=== PATIENT | male | born 1970 | race Caucasian/White ===

== ENCOUNTER 2016-10-04 13:04 | Inpatient (IN) | payer OTHER ==
[~2016-10-04] VITALS: Ht 180.3 cm; Wt 147.9 kg
[2016-10-04 15:11] LABS: BASOPHIL % 0.3 % (0-2); PLATELET COUNT 221 x10^3mcL (130-400); RED CELL DISTRIBUTION WIDTH 12.2 % (11.5-14.5)
[2016-10-04 15:18] LABS: CALCIUM 7.9 mg/dL (8.5-10.1); CARBON DIOXIDE 29.9 mmol/L (21-32); CHLORIDE SERUM 99 mmol/L (98-107); GFR1 > 60 mL/min; GLUCOSE SERUM 336 mg/dL (74-106); POTASSIUM SERUM 3.3 mmol/L (3.5-5.1); SODIUM SERUM 134 mmol/L (136-145)
[2016-10-04 15:22] LABS: ALKALINE PHOSPHATASE 141 U/L (46-116); ALT/SGPT 182 U/L (16-63); AST/SGOT 61 U/L (15-37); CHOLESTEROL 174 mg/dL (<200); PHOSPHOROUS 2.9 mg/dL (2.5-4.9); TOTAL PROTEIN, SERUM 6.6 g/dL (6.4-8.2); URIC ACID 2.1 mg/dL (3.5-7.2)
[2016-10-04 15:26] LABS: HDL CHOLESTEROL 23 mg/dL (40-60)
[2016-10-04 15:35] LABS: microscopic required? NO
[2016-10-04 16:24] LABS: UA SPECIFIC GRAVITY 1.015 (1.005-1.035); urine erythrocyte NEGATIVE (NEGATIVE)
[2016-10-04 16:57] VITALS: BP 162/104
[2016-10-04 17:03] LABS: CHOLESTEROL/HDL RATIO 7.7
[2016-10-04 17:06] LABS: T3 TOTAL 0.94 ng/mL
[2016-10-04 17:13] VITALS: BP 162/104
[2016-10-04 17:17] VITALS: Ht 180.3 cm; Wt 147.9 kg
[2016-10-04 17:29] LABS: FREE T4 1.33 ng/dL (0.76-1.46); FREE THYROXINE INDEX 3.1 ug/dL (1.4-4.5); T4(THYROXINE) 9.8 ug/dL (4.7-13.3)
[2016-10-04 17:43] LABS: AMPHETAMINE QUAL UR NONE DETECTED (NEG <=1000)
[2016-10-04 18:16] VITALS: BP 149/80
[2016-10-04 20:04] VITALS: BP 137/85
[2016-10-04 21:50] VITALS: BP 139/80
[2016-10-05 05:14] LABS: BASOPHIL % 0.4 % (0-2); PLATELET COUNT 232 x10^3mcL (130-400); RED CELL DISTRIBUTION WIDTH 12.1 % (11.5-14.5)
[2016-10-05 05:31] LABS: CALCIUM 7.7 mg/dL (8.5-10.1); CARBON DIOXIDE 27.3 mmol/L (21-32); CHLORIDE SERUM 105 mmol/L (98-107); CREATININE SERUM 0.9 mg/dL (0.7-1.3); GFR1 > 60 mL/min; GLUCOSE SERUM 272 mg/dL (74-106); MAGNESIUM 1.7 mg/dL (1.8-2.4); PHOSPHOROUS 2.9 mg/dL (2.5-4.9); POTASSIUM SERUM 3.3 mmol/L (3.5-5.1); SODIUM SERUM 140 mmol/L (136-145)
[2016-10-05 06:41] VITALS: BP 131/78
[2016-10-05 09:30] VITALS: BP 129/74
[2016-10-05 15:00] VITALS: BP 134/79
[2016-10-05 17:23] VITALS: BP 148/88
[2016-10-05 21:32] VITALS: BP 139/82
[2016-10-06 06:04] VITALS: BP 126/74
[2016-10-06 06:50] LABS: BASOPHIL % 0.3 % (0-2); PLATELET COUNT 265 x10^3mcL (130-400); RED CELL DISTRIBUTION WIDTH 12.5 % (11.5-14.5)
[2016-10-06 07:27] LABS: CALCIUM 8.2 mg/dL (8.5-10.1); CARBON DIOXIDE 24.8 mmol/L (21-32); CHLORIDE SERUM 103 mmol/L (98-107); CREATININE SERUM 0.9 mg/dL (0.7-1.3); GFR1 > 60 mL/min; GLUCOSE SERUM 207 mg/dL (74-106); MAGNESIUM 1.9 mg/dL (1.8-2.4); PHOSPHOROUS 3.5 mg/dL (2.5-4.9); POTASSIUM SERUM 3.7 mmol/L (3.5-5.1); SODIUM SERUM 138 mmol/L (136-145)
[2016-10-06] MEDS ORDERED: ZES10 PO (09:11)
[2016-10-06] MEDS ORDERED: LEVAQUIN750 MG PO (09:12)
[2016-10-06] MEDS ORDERED: GLU5 PO (09:12)
[2016-10-06] MEDS ORDERED: METFORMIN HCL1000 MG PO (09:12)
[2016-10-06] MEDS ORDERED: LAC PO (09:13)
[2016-10-06 09:28] VITALS: BP 126/74
== END 2016-10-06 10:03 | disposition home or self-care (01) | DRG 251 ==
LOC: ED 13:04 → DU 16:13 → MU 10-05 18:58
PROVIDERS: Emergency Medicine; ADMIT Family Medicine
DX: R10.9 Unspecified abdominal pain (principal); R65.10 Systemic inflammatory response syndrome (SIRS) of non-infectious origin without acute organ dysfunction; D68.69 Other thrombophilia; E44.0 Moderate protein-calorie malnutrition; K76.0 Fatty (change of) liver, not elsewhere classified; E87.1 Hypo-osmolality and hyponatremia; E11.65 Type 2 diabetes mellitus with hyperglycemia; F12.10 Cannabis abuse, uncomplicated; Z68.42 Body mass index [BMI] 45.0-49.9, adult; E87.6 Hypokalemia; E66.01 Morbid (severe) obesity due to excess calories; E78.5 Hyperlipidemia, unspecified; I10 Essential (primary) hypertension; Z53.29 Procedure and treatment not carried out because of patient's decision for other reasons; Z88.5 Allergy status to narcotic agent
CPT/HCPCS: 80307; 83880; 84439; 87046; 87046-59; 87804; G0480; J1956; J7030; Q0092

== ENCOUNTER 2017-02-17 11:01 | Inpatient (IN) | payer OTHER ==
[~2017-02-17] VITALS: Ht 180.3 cm; Wt 138.9 kg
[~2017-02-17 11:01] MED LIST: GLU5 PO; LAC PO; LEVAQUIN750 MG PO; METFORMIN HCL1000 MG PO; ZES10 PO
[2017-02-17 11:29] LABS: BASOPHIL % 0.4 % (0-2); PLATELET COUNT 235 x10^3mcL (130-400); RED CELL DISTRIBUTION WIDTH 12.5 % (11.5-14.5)
[2017-02-17 11:46] LABS: CALCIUM 8.8 mg/dL (8.5-10.1); CARBON DIOXIDE 25.3 mmol/L (21-32); CHLORIDE SERUM 103 mmol/L (98-107); CREATININE SERUM 1.1 mg/dL (0.7-1.3); GFR1 > 60 mL/min; GLUCOSE SERUM 302 mg/dL (74-106); POTASSIUM SERUM 3.9 mmol/L (3.5-5.1); SODIUM SERUM 137 mmol/L (136-145)
[2017-02-17 11:52] LABS: ALBUMIN 3.4 g/dL (3.4-5.0); ALKALINE PHOSPHATASE 73 U/L (46-116); ALT/SGPT 41 U/L (16-63); AST/SGOT 15 U/L (15-37); BILIRUBIN TOTAL 0.76 mg/dL (0.20-1.00); LIPASE 129 IU/L (73-393); TOTAL PROTEIN, SERUM 7.2 g/dL (6.4-8.2)
[2017-02-17 13:14] VITALS: BP 141/95
[2017-02-17 13:21] VITALS: Ht 180.3 cm; Wt 138.9 kg
[2017-02-17 13:38] LABS: MAGNESIUM 1.9 mg/dL (1.8-2.4); PHOSPHOROUS 3.7 mg/dL (2.5-4.9)
[2017-02-17 13:43] LABS: CHOLESTEROL/HDL RATIO 4.2
[2017-02-17 13:46] LABS: T3 TOTAL 0.85 ng/mL
[2017-02-17 13:51] LABS: FREE T4 1.06 ng/dL (0.76-1.46); FREE THYROXINE INDEX 2.8 ug/dL (1.4-4.5); T4(THYROXINE) 7.5 ug/dL (4.7-13.3)
[2017-02-17 15:35] VITALS: BP 136/86
[2017-02-17 18:44] VITALS: BP 135/81
[2017-02-17 21:24] LABS: microscopic required? NO
[2017-02-17 21:37] LABS: UA SPECIFIC GRAVITY 1.025 (1.005-1.035); urine erythrocyte NEGATIVE (NEGATIVE)
[2017-02-17 21:44] VITALS: BP 123/79
[2017-02-17 21:44] LABS: AMPHETAMINE QUAL UR NONE DETECTED (NEG <=1000)
[2017-02-18 05:41] VITALS: BP 127/81
[2017-02-18 06:36] LABS: BASOPHIL % 0.5 % (0-2); PLATELET COUNT 193 x10^3mcL (130-400); RED CELL DISTRIBUTION WIDTH 12.5 % (11.5-14.5)
[2017-02-18 07:07] LABS: CALCIUM 8.3 mg/dL (8.5-10.1); CARBON DIOXIDE 29.3 mmol/L (21-32); CHLORIDE SERUM 104 mmol/L (98-107); GFR1 > 60 mL/min; GLUCOSE SERUM 198 mg/dL (74-106); MAGNESIUM 1.9 mg/dL (1.8-2.4); PHOSPHOROUS 4.5 mg/dL (2.5-4.9); POTASSIUM SERUM 3.9 mmol/L (3.5-5.1); SODIUM SERUM 140 mmol/L (136-145)
== END 2017-02-18 08:40 | disposition left against medical advice (07) | DRG 243 ==
LOC: ED 11:01 → DU 12:11
PROVIDERS: Emergency Medicine; ADMIT Family Medicine
DX: K21.9 Gastro-esophageal reflux disease without esophagitis (principal); E11.65 Type 2 diabetes mellitus with hyperglycemia; I10 Essential (primary) hypertension; M94.0 Chondrocostal junction syndrome [Tietze]; E78.5 Hyperlipidemia, unspecified; Z88.6 Allergy status to analgesic agent; E66.01 Morbid (severe) obesity due to excess calories; Z68.41 Body mass index [BMI] 40.0-44.9, adult
CPT/HCPCS: 83880; 84439; J1885; J7030; Q0092

== ENCOUNTER 2017-08-09 22:39 | Inpatient (IN) | payer OTHER ==
[~2017-08-09] VITALS: Ht 180.3 cm; Wt 139.7 kg
[2017-08-09 22:43] VITALS: Ht 180.3 cm; Wt 139.7 kg
[2017-08-10] VITALS (7 sets, daily range): BP systolic 134–194; BP diastolic 51–113
[2017-08-10 00:49] LABS: PLATELET COUNT 180 x10^3mcL (130-400); RED CELL DISTRIBUTION WIDTH 12.7 % (11.5-14.5)
[2017-08-10 00:54] LABS: BASOPHIL % 0 % (0-2)
[2017-08-10 01:11] LABS: ALKALINE PHOSPHATASE 165 U/L (46-116); ALT/SGPT 194 U/L (16-63); AST/SGOT 63 U/L (15-37); BILIRUBIN TOTAL 0.2 mg/dL (0.20-1.00); CALCIUM 8.2 mg/dL (8.5-10.1); CARBON DIOXIDE 19.1 mmol/L (21-32); CHLORIDE SERUM 101 mmol/L (98-107); CREATININE SERUM 1.1 mg/dL (0.7-1.3); GFR1 > 60 mL/min; MAGNESIUM 2.4 mg/dL (1.8-2.4); PHOSPHOROUS 3.7 mg/dL (2.5-4.9); POTASSIUM SERUM 3.8 mmol/L (3.5-5.1); SODIUM SERUM 138 mmol/L (136-145); TOTAL PROTEIN, SERUM 6.6 g/dL (6.4-8.2)
[2017-08-10 01:13] LABS: ALBUMIN 3.3 g/dL (3.4-5.0)
[2017-08-10 01:14] LABS: GLUCOSE SERUM 506 mg/dL (74-106)
[2017-08-10 01:30] LABS: AMPHETAMINE QUAL UR NONE DETECTED (NEG <=1000)
[2017-08-10 04:28] LABS: CHOLESTEROL/HDL RATIO 4.6
[2017-08-10 04:34] LABS: T3 TOTAL 0.79 ng/mL
[2017-08-10 04:37] LABS: FREE T4 0.99 ng/dL (0.76-1.46); T4(THYROXINE) 7.9 ug/dL (4.7-13.3)
[2017-08-10 05:01] LABS: microscopic required? NO
[2017-08-10 05:16] LABS: urine erythrocyte NEGATIVE (NEGATIVE)
[2017-08-10 05:35] LABS: CALCIUM 7.7 mg/dL (8.5-10.1); CARBON DIOXIDE 19.3 mmol/L (21-32); CHLORIDE SERUM 107 mmol/L (98-107); CREATININE SERUM 0.8 mg/dL (0.7-1.3); GFR1 > 60 mL/min; GLUCOSE SERUM 398 mg/dL (74-106); MAGNESIUM 2.1 mg/dL (1.8-2.4); PHOSPHOROUS 3.5 mg/dL (2.5-4.9); POTASSIUM SERUM 3.9 mmol/L (3.5-5.1); SODIUM SERUM 141 mmol/L (136-145)
[2017-08-10 09:16] LABS: BASOPHIL % 0.6 % (0-2); PLATELET COUNT 181 x10^3mcL (130-400); RED CELL DISTRIBUTION WIDTH 12.5 % (11.5-14.5)
[2017-08-10 14:15] LABS: CALCIUM 8.3 mg/dL (8.5-10.1); CARBON DIOXIDE 22.8 mmol/L (21-32); CHLORIDE SERUM 105 mmol/L (98-107); CREATININE SERUM 0.8 mg/dL (0.7-1.3); GFR1 > 60 mL/min; GLUCOSE SERUM 183 mg/dL (74-106); PHOSPHOROUS 2.4 mg/dL (2.5-4.9); POTASSIUM SERUM 3.5 mmol/L (3.5-5.1); SODIUM SERUM 143 mmol/L (136-145)
[2017-08-10 17:02] LABS: CHLORIDE SERUM 107 mmol/L (98-107); CREATININE SERUM 0.8 mg/dL (0.7-1.3); GFR1 > 60 mL/min; GLUCOSE SERUM 130 mg/dL (74-106); MAGNESIUM 1.9 mg/dL (1.8-2.4); PHOSPHOROUS 2.8 mg/dL (2.5-4.9); POTASSIUM SERUM 3.3 mmol/L (3.5-5.1); SODIUM SERUM 142 mmol/L (136-145)
[2017-08-11 05:27] VITALS: BP 143/94
[2017-08-11 06:39] LABS: BASOPHIL % 0.6 % (0-2); PLATELET COUNT 167 x10^3mcL (130-400); RED CELL DISTRIBUTION WIDTH 12.7 % (11.5-14.5)
[2017-08-11 09:08] VITALS: BP 157/99
[2017-08-11 12:40] VITALS: BP 160/95
[2017-08-11 14:02] VITALS: BP 156/88
== END 2017-08-11 15:23 | disposition home or self-care (01) | DRG 420 ==
LOC: ED 22:39 → IC 08-10 03:19 → DU 08-10 03:19 → EDBEDREQ 08-10 03:20 → IC 08-10 04:58 → DU 08-10 20:18
PROVIDERS: Emergency Medicine; Family Medicine; Internal Medicine Pulmonary Disease
DX: E11.10 Type 2 diabetes mellitus with ketoacidosis without coma (principal); E44.0 Moderate protein-calorie malnutrition; E11.65 Type 2 diabetes mellitus with hyperglycemia; I10 Essential (primary) hypertension; F10.129 Alcohol abuse with intoxication, unspecified; G90.8 Other disorders of autonomic nervous system; Z88.6 Allergy status to analgesic agent; Y90.9 Presence of alcohol in blood, level not specified; Z79.84 Long term (current) use of oral hypoglycemic drugs; Z79.899 Other long term (current) drug therapy; E78.1 Pure hyperglyceridemia; F12.10 Cannabis abuse, uncomplicated; Z68.37 Body mass index [BMI] 37.0-37.9, adult; E66.9 Obesity, unspecified; W18.39XA Other fall on same level, initial encounter; Y93.89 Activity, other specified; Y92.89 Other specified places as the place of occurrence of the external cause; Y99.8 Other external cause status; E78.00 Pure hypercholesterolemia, unspecified
CPT/HCPCS: 36600; 83880; 84439; 90658; G0480; J1815; J2405; J3490; J7030; Q0092

== ENCOUNTER 2017-12-22 17:01 | Emergency (ER) | payer OTHER ==
[~2017-12-22] VITALS: Ht 180.3 cm; Wt 131.5 kg
[2017-12-22 17:14] VITALS: Ht 180.3 cm; Wt 131.5 kg
[2017-12-22 19:16] LABS: BASOPHIL % 0.3 % (0-2); PLATELET COUNT 258 x10^3mcL (130-400); RED CELL DISTRIBUTION WIDTH 12.1 % (11.5-14.5)
[2017-12-22 19:27] LABS: CALCIUM 7.9 mg/dL (8.5-10.1); CHLORIDE SERUM 99 mmol/L (98-107); GFR1 > 60 mL/min; GLUCOSE SERUM 425 mg/dL (74-106); POTASSIUM SERUM 3.2 mmol/L (3.5-5.1); SODIUM SERUM 136 mmol/L (136-145)
[2017-12-22 19:31] LABS: ALKALINE PHOSPHATASE 87 U/L (46-116); ALT/SGPT 24 U/L (16-63); AST/SGOT 14 U/L (15-37); BILIRUBIN TOTAL 0.7 mg/dL (0.20-1.00); TOTAL PROTEIN, SERUM 6.8 g/dL (6.4-8.2)
[2017-12-22 20:02] VITALS: BP 153/92
== END 2017-12-22 20:02 | disposition left against medical advice (07) ==
LOC: ED 17:01
PROVIDERS: Emergency Medicine
DX: J36 Peritonsillar abscess (principal); D72.829 Elevated white blood cell count, unspecified; E11.65 Type 2 diabetes mellitus with hyperglycemia; I10 Essential (primary) hypertension; Z88.5 Allergy status to narcotic agent
CPT/HCPCS: 86308; J0561; J1100; J1885